=== PATIENT | male | born 1995 | race Hispanic/Latino ===

== ENCOUNTER 2019-04-20 12:29 | Emergency (ER) | payer SELFPAY ==
--- NOTE | 2019-04-20 12:50 | Event Note ---
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 Denies loss of bowel/bladder control, numbness/tingling/weakness, or hematuria. Also complaining of lower abdominal pain. This initial assessment/diagnostic orders/clinical plan/treatment(s) is/are subject to change based on patients health status, clinical progression and re- assessment by fellow clinical providers in the ED. Further treatment and workup at subsequent clinical providers discretion. Patient/guardian urged not to elope from the ED as their condition may be serious if not clinically assessed and managed. Initial orders include: XR
[2019-04-20] MEDS ORDERED: IBUPROFEN PO ONE (13:29)
--- NOTE | 2019-04-20 13:29 | XRay Report ---
LUMBOSACRAL SPINE, 3 VIEWS INDICATION: pain after fall. COMPARISON: None. IMPRESSION: Normal bone mineralization. Normal alignment. There is a very subtle cortical deformity along the superior endplate of L1 which could represent an acute fracture. Consider further evaluati on with CT lumbar spine without contrast. The remaining lumbar vertebra intact. No degenerative hawley ges or bone lesion. The sacrum and SI joints are unremarkable. Signer Name: Zechariah Marinelli Jr, MD Signed: 04/20/2019 1:25 PM Workstation Name: [id number]
--- NOTE | 2019-04-20 13:32 | Emergency Department Report ---
ED Fall HPI - General Chief Complaint: Extremity Injury, Lower Stated Complaint: FALL/BACK PAIN Time Seen by Provider: 04/20/19 13:04 Source: patient Mode of arrival: Ambulatory - History of Present Illness Initial Comments: 24 y/o male complains of lower back pain after fall down the 6 stairs at home x [employer]. Denies loss of bowel/bladder control, numbness/tingling/weakness, or h ematuria. Denies any head injury or loss of consciousness. Also complaining of lower abdominal pain. MD Complaint: fall -: This morning Fall From: down stairs (#) (6) When Fall Occurred: [address] Fall Occurred: home Loss of Consciousness: none Prolonged Down Time?: no Location: back Severity scale (0 -10): 6 - Related Data Previous Rx's Medication Instructions Recorded Last Taken Type HYDROcodone/APAP 7.5-325 [[place] 1 each PO Q8HR PRN #15 tablet 04/20/19 Unknown Rx 7.5/325] Ibuprofen [Motrin 800 MG tab] 800 mg PO Q8HR PRN #30 tablet 04/20/19 Unknown Rx Allergies Allergy/AdvReac Type Severity Reaction Status Date / Time No Known Allergies Allergy Verified 04/20/19 12:34 ED Review of Systems ROS: Stated complaint: FALL/BACK PAIN Other details as noted in HPI ED Past Medical Hx - Past Medical History Previous Medical History?: No Hx Hypertension: No Hx CVA: No Hx Heart Attack/AMI: No Hx Congestive Heart Failure: No Hx Diabetes: No Hx Deep Vein Thrombosis: No Hx Pulmonary Embolism: No Hx GERD: No Hx Liver Disease: No Hx Renal Disease: No Hx of Cancer: No Hx Sickle Cell Disease: No Hx Arthritis: No Hx Headaches / Migraines: No Hx Seizures: No Hx Kidney Stones: No Hx Psychiatric Treatment: No Hx Asthma: No Hx COPD: No Hx Tuberculosis: No Hx Dementia: No Hx HIV: No - Surgical History Past Surgical History?: No Hx Coronary Stent: No Hx Open Heart Surgery: No Hx Pacemaker: No Hx Internal Defibrillator: No Hx Cholecystectomy: No Hx Appendectomy: No Hx Breast Surgery: No - Social History Smoking Status: Never Smoker - Medications Home Medications: Home Medications Medication Instructions Recorded Confirmed Last Taken Type HYDROcodone/APAP 7.5-325 [[place] 1 each PO Q8HR PRN #15 tablet 04/20/19 Unknown Rx 7.5/325] Ibuprofen [Motrin 800 MG tab] 800 mg PO Q8HR PRN #30 tablet 04/20/19 Unknown Rx ED Physical Exam - General Limitations: No Limitations ED Course Vital Signs 04/20/19 04/20/19 12:46 13:56 Temperature 98.1 F Pulse Rate 92 H Respiratory 18 18 Rate Blood Pressure 147/59 Blood Pressure 147/59 [Right] O2 Sat by Pulse 98 Oximetry - Reevaluation(s) Reevaluation #1: 04/20/19 15:[address] Carpio recommends pain medication and follow up with him in clinic. ED Medical Decision Making - Radiology Data Radiology results: report reviewed Patient: RENÉE RENTERIA MR#: [id number] : 1995 Acct:[id number] Age/Sex: 24 / M ADM Date: 04/20/19 Loc: ED Attending Dr: Ordering Physician: AMBIKA ANN Date of Service: 04/20/19 Procedure(s): XR spine lumbosacral 2-3V Accession Number(s): [id number] cc: AMBIKA ANN Fluoro Time In Minutes: LUMBOSACRAL SPINE, 3 VIEWS INDICATION: pain after fall. COMPARISON: None. IMPRESSION: Normal bone mineralization. Normal alignment. There is a very subtle cortical deformity along the superior endplate of L1 which could represent an acute fra cture. Consider further evaluation with CT lumbar spine without contrast. The remaining lumbar vertebra intact. No degenerative changes or bone lesion. The sacrum and SI joints are unremarkable. Signer Name: Zechariah Marinelli Jr, MD Signed: 04/20/2019 1:25 PM Workstation Name: [id number] Transcribed By: TTR Dictated By: ZECHARIAH MARINELLI JR, MD Electronically Authenticated By: ZECHARAIH MARINELLI JR, MD Signed Date/Time: 04/20/19 1325 DD/ 1324 TD/TT: Patient: RENÉE RENTERIA MR#: [id number] : 1995 Acct:[id number] Age/Sex: 24 / M ADM Date: 04/20/19 Loc: ED Attending Dr: Ordering Physician: TAMAR KENNEDY Date of Service: 04/20/19 Procedure(s): CT lumbar spine wo con Accession Number(s): [id number] cc: TAMAR KENNEDY CT LUMBAR SPINE WITHOUT CONTRAST HISTORY: Fell down; pain COMPARISON: Lumbosacral spine series obtained earlier today TECHNIQUE: CT images of the lumbar spine were obtained without contrast. Sagittal and coronal reformats were post-processed. All CT scans at this location are performed using CT dose reduction for ALARA by means of automated exposure control. CONTRAST: None. FINDINGS: Alignment: Normal. No traumatic subluxation. Vertebrae:There are two findings. MR 1 endplate fracture is seen superiorly on the right side of the L1 vertebral body with minimal step-off. I do not see adjacent edema. Unable to determine the age. 2. 18 mm (height) by 11 mm (by 10 mm (sagittal) sized lucent lesion with sclerotic margin seen at L3 vertebral body. This is extending into the disc space. This could be a large Schmorl's node. Disc Spaces: Nonlateralizing bulging disc is seen at L3-L4 L4-L5 and L5-S1 disc levels. Facet Joints:No significant abnormality. Additional Findings: None IMPRESSION: Cortical endplate fracture on the right side along the superior endplate of L1; I am unable to determine the age Lucent lesion at the L3 vertebral body Schmorl's node Signer Name: Lloyd Lui MD Signed: 04/20/2019 2:06 PM Workstation Name: [id number] Transcribed By: BS Dictated By: Lloyd Booth MD Electronically Authenticated By: Lloyd Booth MD Signed Date/Time: 04/20/19 1406 DD/ 1359 TD/TT: - Medical Decision Making 24 y/o male complains of lower back pain after fall down the 6 stairs at home x [employer]. Denies loss of bowel/bladder control, numbness/tingling/weakness, or hematuria. Denies any head injury or loss of consciousness. Also complaining of lower abdominal pain. Critical care attestation.: If time is entered above; I have spent that time in minutes in the direct care of this critically ill patient, excluding procedure time. ED Disposition Clinical Impression: Fracture of L1 vertebra Qualifiers: Encounter type: initial encounter Fracture type: closed Fracture morphology: unspecified fracture morphology Qualified Code(s): S32.019A - Unspecified fracture of first lumbar vertebra, initial encounter for closed fracture Disposition: - TO HOME OR SELFCARE Is pt being admited?: No Does the pt Need Aspirin: No Condition: Stable Instructions: Thoracolumbar Fracture (ED) Additional Instructions: Take pain medication as needed. Do not operate heavy machinery while taking [place]. It's very important for you to follow up with Dr. Carpio orthopedic provider. I recommended calling today to make an appointment for Tuesday. Prescriptions: Ibuprofen [Motrin 800 MG tab] 800 mg PO Q8HR PRN #30 tablet PRN Reason: Pain , Severe (7-10) HYDROcodone/APAP 7.5-325 [[place] 7.5/325] 1 each PO Q8HR PRN #15 tablet PRN Reason: Pain Referrals: ARAVIND CARPIO MD [Staff Physician] - 3-5 Days Forms: Work/School Release Form(ED), Accompanied Note
--- NOTE | 2019-04-20 14:10 | Cat Scan Report ---
CT LUMBAR SPINE WITHOUT CONTRAST HISTORY: Fell down; pain COMPARISON: Lumbosacral spine series obtained earlier today TECHNIQUE: CT images of the lumbar spine were obtained without contrast. Sagittal and coronal reform ats were post-processed. All CT scans at this location are performed using CT dose reduction for ALAR A by means of automated exposure control. CONTRAST: None. FINDINGS: Alignment: Normal. No traumatic subluxation. Vertebrae:There are two findings. MR 1 endplate fracture is seen superiorly on the right side of the L1 vertebral body with minimal step-o ff. I do not see adjacent edema. Unable to determine the age. 2. 18 mm (height) by 11 mm (by 10 mm (sagittal) sized lucent lesion with sclerotic margin seen at L3 vertebral body. This is extending into the disc space. This could be a large Schmorl's node. Disc Spaces: Nonlateralizing bulging disc is seen at L3-L4 L4-L5 and L5-S1 disc levels. Facet Joints:No significant abnormality. Additional Findings: None IMPRESSION: Cortical endplate fracture on the right side along the superior endplate of L1; I am unable to determ ine the age Lucent lesion at the L3 vertebral body Schmorl's node Signer Name: Lloyd Lui MD Signed: 04/20/2019 2:06 PM Workstation Name: [id number]
[2019-04-20 16:12] VITALS: BP 140/64
== END 2019-04-20 16:10 | disposition home or self-care (01) ==
LOC: ED 12:29
DX: S32.019A Unspecified fracture of first lumbar vertebra, initial encounter for closed fracture (principal); W10.9XXA Fall (on) (from) unspecified stairs and steps, initial encounter; Y93.89 Activity, other specified; Y92.89 Other specified places as the place of occurrence of the external cause; Y99.8 Other external cause status
CPT/HCPCS: 72100; 72131